=== PATIENT | female | born 1965 | race Caucasian/White ===

== ENCOUNTER 2017-10-30 19:50 | Emergency (ER) | payer BC, OTHER ==
[2017-10-30 20:15] VITALS: BP 156/82; PULSE 70; TEMP 98.4; BMI 30.5
[2017-10-30 21:01] LABS: BASO % 0.3 % (0-2.0); EOS % 1.3 % (0-4.5); HEMOGLOBIN 12.4 GM/dl (10.7-15.3); LYMPH % 24.2 % (8-40); MCH 28.9 pg (25.7-33.7); MCHC 34.5 g/dl (32.0-36.0); MEAN CELL VOLUME 83.8 fl (80-96); MEAN PLT VOLUME 9.5 fl (7.5-11.1); MONO % 5.6 % (3.8-10.2); NEUT % 68.6 % (42.8-82.8); PLATELET COUNT 289 K/MM3 (134-434); WHITE BLOOD COUNT 10.1 K/mm3 (4.0-10.8)
[2017-10-30 21:11] LABS: ALBUMIN 4.1 g/dl (3.5-5.0); ALK PHOS 126 U/L (32-92); ANION GAP 7 (8-16); BILIRUBIN,TOTAL 0.6 mg/dl (0.2-1.0); BLOOD UREA NITROGEN 14 mg/dl (7-18); CALCIUM 9.1 mg/dl (8.4-10.2); CHLORIDE 101 mmol/L (98-107); CO2 27 mmol/L (22-28); GLUCOSE,RANDOM 94 mg/dl (74-106); POTASSIUM 3.4 mmol/L (3.5-5.1); SGOT/AST 67 U/L (10-42); SGPT/ALT 33 U/L (10-40); SODIUM 135 mmol/L (136-145); TOT PROT 7.3 g/dl (6.4-8.3)
[2017-10-30 21:19] LABS: CREATININE < 0.8 mg/dl (0.6-1.3)
--- NOTE | 2017-10-30 21:28 | PDOC ---
History of Present Illness - General History Source: Patient, Old Records Exam Limitations: No Limitations - History of Present Illness Initial Comments: 10/30/17 21:29 The patient is a 52 year old female with a past medical history of anemia ( takes a B12 shot monthly and Iron supplements daily) who presents to the emergency department today with chest pain for 1 hour. The patient states that she picked something up around the house 2 hours ago and began to experience some back pain. She then took a bath at 7pm to try and alleviate the pain. Upon sitting in the bath she began to experience chest pain. She describes her chest pain feeling as if someone was sitting on her. She denies any ankle swelling or pain. <Quinton Pinedo - Last Filed: 10/30/17 21:29> <Marvin Sky - Last Filed: 10/31/17 01:45> - General Chief Complaint: Chest Pain Stated Complaint: CHEST PAIN Time Seen by Provider: 10/30/17 20:11 Past History <Quinton Pinedo - Last Filed: 10/30/17 21:29> - Past Medical History COPD: No - Suicide/Smoking/Psychosocial Hx Smoking History: Never smoked Hx Alcohol Use: Yes (OCCASIONAL) Drug/Substance Use Hx: No Substance Use Type: None <Marvin Sky - Last Filed: 10/31/17 01:45> - Past Medical History Allergies/Adverse Reactions: Allergies Allergy/AdvReac Type Severity Reaction Status Date / Time Penicillins Allergy Mild Rash Verified 10/30/17 20:50 erythromycin base AdvReac Mild Nausea Verified 10/30/17 20:50 Home Medications: Ambulatory Orders Ferrous Gluconate [Fergon] 270 mg PO DAILY 10/30/17 Review of Systems - Review of Systems Able to Perform ROS?: Yes Comments:: 10/30/17 21:29 GENERAL/CONSTITUTIONAL: No fever or chills. No weakness. HEAD, EYES, EARS, NOSE AND THROAT: No change in vision. No ear pain or discharge. No sore throat. GASTROINTESTINAL: No nausea, vomiting, diarrhea or constipation. CARDIOVASCULAR: (+) Chest pain. No shortness of breath. RESPIRATORY: No cough, wheezing, or hemoptysis. MUSCULOSKELETAL: No joint or muscle swelling or pain. (+) Back pain SKIN: No rash NEUROLOGIC: No headache, vertigo, loss of consciousness, or change in strength/ sensation. ENDOCRINE: No increased thirst. No abnormal weight change. HEMATOLOGIC/LYMPHATIC: (+) Anemia <Quinton Pinedo - Last Filed: 10/30/17 21:29> *Physical Exam - Vital Signs Last Vital Signs Temp Pulse Resp BP Pulse Ox 98.4 F 70 16 156/82 96 10/30/17 20:01 10/30/17 20:01 10/30/17 20:01 10/30/17 20:01 10/30/17 20:01 - Physical Exam Comments: 10/30/17 21:29 GENERAL: Awake, alert, and fully oriented, in no acute distress HEAD: No signs of trauma EYES: PERRLA, EOMI, sclera anicteric, conjunctiva clear ENT: Auricles normal inspection, hearing grossly normal, nares patent, oropharynx clear without exudates. Moist mucosa NECK: Normal ROM, supple, no lymphadenopathy, JVD, or masses LUNGS: Breath sounds equal, clear to auscultation bilaterally. No wheezes, and no crackles HEART: Regular rate and rhythm, normal S1 and S2, no murmurs, rubs or gallops ABDOMEN: Soft, nontender, normoactive bowel sounds. No guarding, no rebound. No masses EXTREMITIES: Normal range of motion, no edema. No clubbing or cyanosis. No cords, erythema, or tenderness NEUROLOGICAL: Cranial nerves II through XII grossly intact. Normal speech, normal gait SKIN: Warm, Dry, normal turgor, no rashes or lesions noted. <Quinton Pinedo - Last Filed: 10/30/17 21:29> - Vital Signs Last Vital Signs Temp Pulse Resp BP Pulse Ox 98.4 F 70 16 156/82 96 10/30/17 20:01 10/30/17 20:01 10/30/17 20:01 10/30/17 20:01 10/30/17 20:01 <Marvin Sky - Last Filed: 10/31/17 01:45> ED Treatment Course - LABORATORY CBC & Chemistry Diagram: 10/30/17 20:40 10/30/17 20:40 - ADDITIONAL ORDERS Additional order review: Laboratory Results 10/30/17 10/30/17 20:40 20:40 Sodium 135 L Potassium 3.4 L Chloride 101 Carbon Dioxide 27 Anion Gap 7 L BUN 14 Creatinine < 0.8 Creat Clearance w eGFR > 60 Random Glucose 94 Calcium 9.1 Total Bilirubin 0.6 AST 67 H ALT 33 Alkaline Phosphatase 126 H Troponin I < 0.03 Total Protein 7.3 Albumin 4.1 10/30/17 20:40 RBC 4.30 MCV 83.8 MCHC 34.5 RDW 13.0 MPV 9.5 Neutrophils % 68.6 Lymphocytes % 24.2 Monocytes % 5.6 Eosinophils % 1.3 Basophils % 0.3 <Quinton Pinedo - Last Filed: 10/30/17 21:29> - LABORATORY CBC & Chemistry Diagram: 10/30/17 20:40 10/30/17 20:40 - ADDITIONAL ORDERS Additional order review: Laboratory Results 10/30/17 10/30/17 20:40 20:40 Sodium 135 L Potassium 3.4 L Chloride 101 Carbon Dioxide 27 Anion Gap 7 L BUN 14 Creatinine < 0.8 Creat Clearance w eGFR > 60 Random Glucose 94 Calcium 9.1 Total Bilirubin 0.6 AST 67 H ALT 33 Alkaline Phosphatase 126 H Troponin I < 0.03 Total Protein 7.3 Albumin 4.1 10/30/17 20:40 RBC 4.30 MCV 83.8 MCHC 34.5 RDW 13.0 MPV 9.5 Neutrophils % 68.6 Lymphocytes % 24.2 Monocytes % 5.6 Eosinophils % 1.3 Basophils % 0.3 - RADIOLOGY Radiology Studies Ordered: Category Date Time Status CHEST PA & LAT [RAD] Stat Radiology 10/30/17 20:11 Taken <Marvin Sky - Last Filed: 10/31/17 01:45> Medical Decision Making - Medical Decision Making 10/31/17 01:44 cxr -, as read by me, referred to radiology for definitive review low risk cp tropn - x 2 will fu with PCP, a licensed therapist for outpt stress <Marvin Sky - Last Filed: 10/31/17 01:45> *DC/Admit/Observation/Transfer - Attestations Scribe Attestion: 10/30/17 21:30 Documentation prepared by Quinton Pinedo, acting as bilingual medical assistant for Marvin Sky MD. <Quinton Pinedo - Last Filed: 10/30/17 21:29> - Discharge Dispostion Admit: No <Marvin Sky - Last Filed: 10/31/17 01:45> Diagnosis at time of Disposition: Chest pain Qualifiers: Chest pain type: chest pain on breathing Qualified Code(s): R07.1 - Chest pain on breathing - Discharge Dispostion Disposition: HOME Condition at time of disposition: Good - Patient Instructions Printed Discharge Instructions: DI for Atypical Chest Pain
[2017-10-30] MEDS ORDERED: KETOROLAC TROMETHAMINE 15 MG/ML VIAL IVPUSH ONE (21:30)
[2017-10-30] MEDS ORDERED: KETOROLAC TROMETHAMINE 15 MG/ML VIAL ONE (21:32)
[2017-10-30 21:38] LABS: LIPASE 143 U/L (73-393)
--- NOTE | 2017-11-01 12:53 | EKG ---
Test Reason : Blood Pressure : / mmHG Vent. Rate : 070 BPM Atrial Rate : 070 BPM P-R Int : 150 ms QRS Dur : 082 ms QT Int : 414 ms P-R-T Axes : 031 019 -01 degrees QTc Int : 447 ms NORMAL SINUS RHYTHM NORMAL ECG NO PREVIOUS ECGS AVAILABLE Confirmed by MD STACI, SANDHYA ([id number]) on 11/01/2017 12:53:26 PM Referred By: Adithya DUNN Confirmed By:SANDHYA SMALL MD
== END 2017-10-31 00:25 | disposition home or self-care (01) ==
LOC: FER 19:50
PROC: 3E0337Z Introduction of Electrolytic and Water Balance Substance into Peripheral Vein, Percutaneous Approach (ICD-10-PCS; principal; 2017-10-30)
DX: R07.1 Chest pain on breathing (principal)
CPT/HCPCS: 36415; 71046-TC-FY; 80053; 83690; 84484; 85025; 93005; 99283-25